=== PATIENT | male | born 1955 | race Caucasian/White ===

== ENCOUNTER → 2021-01-10 | Outpatient (CLI) | payer MEDICARE, OTHER ==
[~2021-01-10] MED LIST: ROSU10TA2 PO
== END | disposition home or self-care (01) ==
LOC: STAR 08:46
PROVIDERS: ATTEND Surgery
DX: Z01.812 Encounter for preprocedural laboratory examination (principal); Z20.822 Contact with and (suspected) exposure to COVID-19; R94.31 Abnormal electrocardiogram [ECG] [EKG]
CPT/HCPCS: 93005; U0003; U0005

== ENCOUNTER 2021-01-17 08:18 | Day surgery (SDC) | payer MEDICARE, OTHER ==
[~2021-01-17] VITALS: Ht 188 cm; Wt 90.2 kg
[2021-01-17] MEDS ORDERED: FENTANYL PF 250 MCG/5ML ONE (08:23)
[2021-01-17] MEDS ORDERED: PROPOFOL 10 MG/ML, 20ML ONE (08:23)
[2021-01-17] MEDS ORDERED: LIDOCAINE 4%, 4 ML SYR/CANN TP ONE ×2 (08:23→08:24)
[2021-01-17] MEDS ORDERED: ONDANSETRON 2MG/ML, 2ML ONE (08:23)
[2021-01-17] MEDS ORDERED: MIDAZOLAM 1 MG/ML, 2ML ONE (08:23)
[2021-01-17] MEDS ORDERED: ROCURONIUM 10MG/ML,5ML ONE (08:23)
[2021-01-17] MEDS ORDERED: LIDOCAINE GEL 2%, 5ML ONE (08:24)
[2021-01-17] MEDS ORDERED: DEXAMETHASONE 4 MG/ML, 1ML ONE (08:24)
[2021-01-17] MEDS ORDERED: CEFAZOLIN 1,000 MG ONE (08:24)
[2021-01-17] MEDS ORDERED: EPINEPHRINE 1 MG/ML, 1ML ONE (09:07)
[2021-01-17] MEDS ORDERED: BUPIVACAINE/PF 0.5% ONE (09:07)
[2021-01-17 09:09] VITALS: BP 112/72
[2021-01-17] MEDS ORDERED: CHLORHEXIDINE 15 ML UDC PO ONE (09:30)
[2021-01-17] MEDS ORDERED: LACTATED RINGERS 1,000 ML IV SCH (09:30)
[2021-01-17] MEDS ORDERED: SUGAMMADEX 200 MG/2 ML IVPush ONE (09:42)
[2021-01-17] MEDS ORDERED: OXYcodone 5 MG/5 ML ORAL.SOL UDC ONE ×2 (11:16→11:47)
[2021-01-17] MEDS: OXYcodone 5 MG/5 ML ORAL.SOL UDC PO PRN ×2 (11:17→11:48)
[2021-01-17] MEDS ORDERED: FENTANYL PF 100 MCG/2ML IV PRN ×2 (11:30→12:00)
[2021-01-17] MEDS ORDERED: METHOCARBAMOL 1,000 MG in DEXTROSE 5% 100 ML IV PRN (11:30)
[2021-01-17] MEDS ORDERED: MEPERIDINE/PF 25MG/0.5ML IVPush PRN ×2 (11:30→12:00)
[2021-01-17] MEDS ORDERED: HYDROmorphone 1 MG/ML, 1ML INJ IVPush PRN (11:30)
[2021-01-17] MEDS ORDERED: LABETALOL 5MG/ML, 20ML IV PRN ×2 (11:30→12:00)
[2021-01-17] MEDS ORDERED: hydrALAzine 20 MG/ML, 1ML IV PRN ×2 (11:30→12:00)
[2021-01-17] MEDS ORDERED: PROMETHAZINE 25 MG/ML, 1ML IVPush PRN (11:30)
[2021-01-17] MEDS ORDERED: FENTANYL PF 100 MCG/2ML ONE (11:46)
[2021-01-17] MEDS ORDERED: HYDROmorphone 1 MG/ML, 1ML INJ ONE (11:46)
[2021-01-17] MEDS ORDERED: HYDROmorphone 2 MG/ML, 1ML IVPush PRN (12:00)
[2021-01-17] MEDS ORDERED: OXYcodone 5 MG/5 ML ORAL.SOL UDC PO PRN (12:00)
[2021-01-17] MEDS ORDERED: KETOROLAC 30 MG/1 ML IV PRN (12:00)
[2021-01-17] MEDS ORDERED: ALBUTEROL SULFATE 2.5 MG/3 ML NPPB PRN (12:00)
[2021-01-17] MEDS ORDERED: DIAZEPAM 5 MG/ML, 2ML IVPush PRN (12:00)
[2021-01-17] MEDS ORDERED: PROMETHAZINE 25 MG/ML, 1ML IV PRN (12:00)
[2021-01-17] MEDS ORDERED: ACETAMINOPHEN 325 MG TABLET PO PRN (12:00)
[2021-01-17] MEDS ORDERED: KETOROLAC 30 MG/1 ML ONE (12:02)
== END 2021-01-17 14:10 | disposition home or self-care (01) ==
LOC: OUT 08:18
PROVIDERS: ATTEND Surgery
DX: K42.0 Umbilical hernia with obstruction, without gangrene (principal); K66.0 Peritoneal adhesions (postprocedural) (postinfection); E78.5 Hyperlipidemia, unspecified; Z79.891 Long term (current) use of opiate analgesic; Z79.899 Other long term (current) drug therapy
CPT/HCPCS: 49653; C1781; J0171; J0690; J1100; J1170; J1885; J2250; J2405; J2704; J3010; J7120